=== PATIENT | female | born 1945 | race Caucasian/White ===

== ENCOUNTER 2018-10-27 09:13 | Inpatient (IN) ==
[2018-10-27] MEDS ORDERED: ATIVAN IV ONE (09:36)
--- NOTE | 2018-10-27 09:42 | PROVIDER DOCUMENTATION ---
HPI-General Adult - General Stated Complaint: AMS Time Seen by Provider: 10/27/18 09:29 Source: family, EMS Allergies/Adverse Reactions: Patient Allergies Allergy/AdvReac Type Severity Reaction Status Date / Time No Known Allergies Allergy Verified 10/27/18 10:33 Home Medications: Home Medication List Medication Instructions Recorded Confirmed Last Taken Type Albuterol Sulfate [Proair Hfa] 2 puff INH Q4-6H PRN PRN 10/27/18 10/27/18 Unknown History Apixaban [Eliquis] 1 tab PO DAILY 10/27/18 10/27/18 Unknown History Aspirin [Aspir-Low] 1 tab PO DAILY 10/27/18 10/27/18 Unknown History Atorvastatin Calcium 1 tab PO QHS 10/27/18 10/27/18 Unknown History Famotidine 1 tab PO DAILY 10/27/18 10/27/18 Unknown History Hydrochlorothiazide 1 tab PO DAILY 10/27/18 10/27/18 Unknown History Levothyroxine Sodium 1 tab PO DAILY 10/27/18 10/27/18 Unknown History Montelukast Sodium 1 tab PO DAILY 10/27/18 10/27/18 Unknown History Sotalol HCl [Sorine] 1 tab PO DAILY 10/27/18 10/27/18 Unknown History - History of Present Illness -Gen Adult Nature of Presenting Problems: Pt. is 73 yof that presents with AMS. Pt. daughter at bedside reports the patient was fine last night and today she is not talking and fidgiting everywhere. EMS reports she is O2 dependent at home and this morning was found with out her O2 on. Pt. has Hx of previous CVA with full recovery and no deficits. Pt. also has a Hx of HTN and COPD. Pt. has blood thinners in her medications but family isn't sure if she takes it or not. Location of Pain/Injury: reports: none. denies: head, face, mouth, neck, chest, upper extremity, hand(s), abdomen, back, pelvis, genitalia, lower extremity, feet, upper body, lower body, generalized, other Pain Radiation: reports: no radiation. denies: arm(s), back, buttocks, chest, epigastric, feet, groin, jaw, flank (L), legs (lower), LLQ, LUQ, neck, periumbilical, flank (R), RLQ, RUQ, shoulder(s), scapula, scrotal, sternal notch, suprapubic, legs (upper), urethral, vaginal, other Quality of Pain: reports: none. denies: aching, burning, pressure, stabbing, throbbing, tightness Severity: reports: moderate. denies: mild, severe Onset/Duration: reports: unsure Timing: reports: still present. denies: improving, gone now, constant, getting worse Context/Activities at Onset: reports: none. denies: light activity, moderate activity, vigorous activity, recent emotional stress, recent physical stress, recent trauma history, possible bad food, cold exposure, eating, out of country travel, rest, sleep, sexual activity, other Modifying Factors: improves with: nothing Associated Symptoms: reports: anxiety, other (AMS). denies: denies symptoms, arm pain, back/neck pain, chest pain, constipation, cough, diaphoresis, diarrhea, dizziness, EENT symptoms, fatigue, fever/chills, genitourinary problems, headaches, heartburn, joint pain, loss of appetite, malaise, muscle aches, sinus congestion/drainage, nausea, rash, seizure, shortness of breath, sensory/motor loss, pain with inspiration, swelling/mass in abdomen, syncope, vomiting, weakness, trouble walking Similar Symptoms Previously?: No Recently seen or treated by another doctor?: No Review of Systems - Adult - REVIEW OF SYSTEMS - ADULT Constitutional: reports: no symptoms reported Eyes: reports: no symptoms reported Ears, Nose, Mouth & Throat: reports: no symptoms reported Cardiovascular: reports: no symptoms reported Respiratory: reports: no symptoms reported Gastrointestinal: reports: no symptoms reported Genitourinary: reports: no symptoms reported Musculoskeletal: reports: no symptoms reported Integumentary: reports: no symptoms reported Neurological: reports: see HPI, other (AMS). denies: dizziness/vertigo, numbness, seizure Psychiatric: reports: no symptoms reported Past History - Adult - PAST MEDICAL HISTORY-ADULT Review of Records: reports: Old Records Reviewed, Nursing Assessment Review, Medications Reviewed, Social history reviewed & non-contributory. - IMMUNIZATION STATUS Childhood Immunizations: See Nurse Assessment Flu Vaccine: See Nurse Assessment - FAMILY HISTORY Family History: reviewed, not pertinent - SOCIAL HISTORY Smoking: quit greater than 1 year Physical Exam-General - PHYSICAL EXAM-ADULT Initial Vital Signs Reviewed: Yes - CONSTITUTIONAL General Appearance: moderate distress, anxious. negative: slow to respond, obtunded, combative - EYES Eyes: PERRL/EOMI, pink conjunctivae. negative: conjuctival exudate, scleral icterus, subconjunctival hemorrhage - HEAD, EARS, NOSE, MOUTH & THROAT HENMT: normocephalic/atraumatic, moist mucous membranes. negative: angioedema, frontal tenderness, maxillary tenderness - NECK Neck: non-tender, full range of motion, supple, normal inspection. negative: lymphadenopathy, trachial deviation, thyromegaly - RESPIRATORY Respiratory: lungs clear, normal breath sounds. negative: crackles, rales, rhonchi, stridor, wheezing - CARDIOVASCULAR Cardiovascular: normal peripheral pulses, regular rate, rhythm, no edema, no JVD . negative: extra beats, friction rub, irregularly irregular - GASTROINTESTINAL (ABDOMEN) Abdominal Exam: normal bowel sounds, non tender, soft. negative: distended, guarding, rigid, rebound, tenderness, hernia, mass - LYMPHATIC Lymphatic: no adenopathy. negative: axilla node tender, cervical node tenderness - MUSCULOSKELETAL Back Exam: normal inspection, no CVA tenderness, no vertebral tenderness. negative: ecchymosis, swelling, vertebral tenderness Extremity: normal range of motion, non-tender, normal inspection. negative: deformity, erythema, inflammation, swelling, tenderness Peripheral Pulses: radial (R): 2+, radial (L): 2+ - SKIN Integumentary: normal color, normal turgor, warm/dry. negative: cyanosis, erythema, jaundice, pallor, tenderness, warm - NEUROLOGIC Neurologic: grossly normal, no motor/sensory deficits. negative: aphasia, facial droop, focal weakness, motor weakness, sensory deficit - PSYCHIATRIC Psych/Mental Status: disoriented x 3, anxious. negative: normal mood/affect, normal thought content, normal thought process, oriented x 3 Progress - PLAN OF CARE/RESULTS Progress/Plan/Lab Results: Laboratory Results - last 24 hr 10/27/18 09:25 POC Glucose 106 H Orders Category Date Time Status Saline Loc NOW Care 10/27/18 09:35 Active CHEST-PORTABLE [RAD] Stat Exams 10/27/18 09:[address] HEAD W/O CONTRAST [CT] Stat Exams 10/27/18 09:36 Ordered ABG [RESP] Routine Lab 10/27/18 09:36 Ordered CBC WITH ELECTRONIC DIFF [HEME] Stat Lab 10/27/18 09:35 Uncollected CK PROFILE [SP CHEM] Stat Lab 10/27/18 09:35 Uncollected COMPREHENSIVE METABOLIC PANEL [CHEM] Stat Lab 10/27/18 09:35 Uncollected PRO B-NATRIURETIC PEPTIDE Stat Lab 10/27/18 09:35 Uncollected PROTIME WITH INR [COAG] Stat Lab 10/27/18 09:35 Uncollected PTT [COAG] Stat Lab 10/27/18 09:35 Uncollected TROPONIN T Stat Lab 10/27/18 09:35 Uncollected TSH Stat Lab 10/27/18 09:35 Uncollected URINALYSIS W/POSS RFLX CULT [URINALYSIS] Stat Lab 10/27/18 09:35 Uncollected Lorazepam [Ativan] Med 10/27/18 09:36 Once 0.5 mg IV NOW ONE EKG [EKG] Stat Ther 10/27/18 09:35 Ordered Laboratory Tests 10/27/18 10/27/18 10/27/18 09:25 09:45 09:50 WBC RBC Hgb Hct MCV MCH MCHC RDW Std Deviation Plt Count MPV Immature Gran % (Auto) Neut % (Auto) Lymph % (Auto) [place] % (Auto) Eos % (Auto) Baso % (Auto) Immature Gran # (Auto) Neut # (Auto) Lymph # (Auto) [place] # (Auto) Eos # (Auto) Baso # (Auto) PT INR PTT (Actin FS) Specimen Type ARTERIAL Sample Site R BRACHIAL pH 7.44 pCO2 52 H* pO2 93 HCO3 32.1 H Base Excess 9.3 H Oxyhemoglobin 96.2 ABG O2 Sat (Calculated) 19.0 ABG O2 Saturation 98.7 ABG Carboxyhemoglobin 1.40 ABG Methemoglobin 1.1 Maverick Test NO A-a O2 Difference 42.0 Total Hemoglobin 14.0 Lactate 1.00 Liter Flow 2.0 Blood Gas Modality CANNULA FiO2 % 28.0 Sodium Potassium Chloride Carbon Dioxide Anion Gap BUN Creatinine Estimated GFR/1.73 m2 BUN/Creatinine Ratio Glucose POC Glucose 106 H Calculated Osmolality Calcium Total Bilirubin AST ALT Alkaline Phosphatase Creatine Kinase Troponin T [id number] Pept Total Protein Albumin Globulin Albumin/Globulin Ratio Plasma Lactate 1.4 Urine Source Urine Color Urine Turbidity Urine pH Ur Specific Sabael Urine Protein Ur Glucose (Stick) Ur Ketones (Stick) Urine Blood Urine Nitrite Urine Bilirubin Urobilinogen Dipstick Urine Leukocytes Urine WBC (Auto) Urine RBC (Auto) U Epithel Cells (Auto) Urine Bacteria (Auto) 10/27/18 10/27/18 10/27/18 10:00 10:00 10:00 WBC 7.96 RBC 4.36 Hgb 13.4 Hct 40.4 MCV 92.7 MCH 30.7 MCHC 33.2 RDW Std Deviation 12.1 Plt Count 335 MPV 10.3 Immature Gran % (Auto) 0.0 Neut % (Auto) 57.3 Lymph % (Auto) 27.5 [place] % (Auto) 13.7 H Eos % (Auto) 1.1 Baso % (Auto) 0.4 Immature Gran # (Auto) 0.00 Neut # (Auto) 4.56 Lymph # (Auto) 2.19 [place] # (Auto) 1.09 H Eos # (Auto) 0.09 Baso # (Auto) 0.03 PT INR PTT (Actin FS) Specimen Type Sample Site pH pCO2 pO2 HCO3 Base Excess Oxyhemoglobin ABG O2 Sat (Calculated) ABG O2 Saturation ABG Carboxyhemoglobin ABG Methemoglobin Maverick Test A-a O2 Difference Total Hemoglobin Lactate Liter Flow Blood Gas Modality FiO2 % Sodium 139 Potassium 3.6 Chloride 93 L Carbon Dioxide 33 Anion Gap 13 BUN 10 Creatinine 0.7 Estimated GFR/1.73 m2 > 60 BUN/Creatinine Ratio 14 Glucose 101 POC Glucose Calculated Osmolality 277 Calcium 9.1 Total Bilirubin 0.65 AST 17 ALT 11 Alkaline Phosphatase 69 Creatine Kinase 85 Troponin T [id number] Pept 1706 H Total Protein 6.8 Albumin 3.8 Globulin 3.0 Albumin/Globulin Ratio 1.3 Plasma Lactate Urine Source Urine Color Urine Turbidity Urine pH Ur Specific Sabael Urine Protein Ur Glucose (Stick) Ur Ketones (Stick) Urine Blood Urine Nitrite Urine Bilirubin Urobilinogen Dipstick Urine Leukocytes Urine WBC (Auto) Urine RBC (Auto) U Epithel Cells (Auto) Urine Bacteria (Auto) 10/27/18 10/27/18 10/27/18 10:00 10:00 10:55 WBC RBC Hgb Hct MCV MCH MCHC RDW Std Deviation Plt Count MPV Immature Gran % (Auto) Neut % (Auto) Lymph % (Auto) [place] % (Auto) Eos % (Auto) Baso % (Auto) Immature Gran # (Auto) Neut # (Auto) Lymph # (Auto) [place] # (Auto) Eos # (Auto) Baso # (Auto) PT 18.2 H INR 1.39 PTT (Actin FS) 29.3 Specimen Type Sample Site pH pCO2 pO2 HCO3 Base Excess Oxyhemoglobin ABG O2 Sat (Calculated) ABG O2 Saturation ABG Carboxyhemoglobin ABG Methemoglobin Maverick Test A-a O2 Difference Total Hemoglobin Lactate Liter Flow Blood Gas Modality FiO2 % Sodium Potassium Chloride Carbon Dioxide Anion Gap BUN Creatinine Estimated GFR/1.73 m2 BUN/Creatinine Ratio Glucose POC Glucose Calculated Osmolality Calcium Total Bilirubin AST ALT Alkaline Phosphatase Creatine Kinase Troponin T < 0.010 [id number] Pept Total Protein Albumin Globulin Albumin/Globulin Ratio Plasma Lactate Urine Source CATH Urine Color YELLOW Urine Turbidity CLEAR Urine pH 5.5 Ur Specific Sabael 1.021 Urine Protein TRACE A Ur Glucose (Stick) NEGATIVE Ur Ketones (Stick) TRACE A Urine Blood TRACE A Urine Nitrite NEGATIVE Urine Bilirubin NEGATIVE Urobilinogen Dipstick 2 A Urine Leukocytes NEGATIVE Urine WBC (Auto) <10 Urine RBC (Auto) <10 U Epithel Cells (Auto) <10 Urine Bacteria (Auto) 1+ Family is insistent on begin transferred to . Dr. Pringle spoke to and they do not have any beds. He then spoke to the family and they are now willing to stay here at [facility]. Discussed results and plan of care with patient family. The agree with plan and verbalizes understanding. Result Diagrams: 10/27/18 10:00 10/27/18 10:00 - EKG 1 Time of EKG reading by physician:: 09:28 EKG Read and Signed by:: Lonnie Pringle EKG Interpretation (*Must complete 3 of following elements*): Abnormal Rate: 75 Rhythm: SR with PVC - XRAY 1 XRAY Study: Chest ([facility] [address] , [address], [place] [address] Department of Imaging Patient: NAHID AMEZCUA Date: 10/27/18MR#: [id number] : 5ADM Status: REG ERAcct#: [id number] Age/Sex: 73/FRoom/Bed: Loc: ED Ordering Physician: Claribel Temple Family Physician: None,PCP Reason for Procedure: AMS Signed EXAM: CHEST-PORTABLE HISTORY: AMS TECHNIQUE: Chest single view COMPARISON: 06/29/2010 FINDINGS: The lungs are well expanded. The heart is not enlarged. The vessels are not distended. There are increased interstitial markings in the apices believed to be fibrosis. No effusion identified. IMPRESSION: No acute abnormality.. Electronically signed by Chetan Larose 10/27/2018 10:38 AM 10/27/18 1038 Interpreting Physician: Chetan Larose MD Dictated Date/Time: 10/27/18 1038 cc: Clariebl Temple; None,PCP) XRAY Interpretation: See note - CT/MRI 1 CT Study: Head ([facility] [address], [address], [place] [address] Department of Imaging Patient: NAHID AMEZCUA Date: 10/27/18#: [id number] : 5ADM Status: REG ERAt#: [id number] Age/Sex: 73/FRoom/Bed: Loc: ED Ordering Physician: Claribel Temple Family Physician: None,PCP Reason for Procedure: ams Signed EXAM: CT HEAD W/O CONTRAST HISTORY: ams TECHNIQUE: CT head without contrast COMPARISON: 06/19/2018 FINDINGS: No parenchymal hemorrhage. No epidural or subdural hematoma. No subarachnoid hemorrhage. Minimal microvascular ischemic changes. No mass identified on this noncontrasted exam. No hydrocephalus. There is fluid in the right mastoid sinus similar to the prior study. IMPRESSION: No hemorrhage. Minimal microvascular ischemic changes.. This exam was performed using automated exposure control, adjustment of mA or kV according to patient size, and/or use of iterative reconstruction technique. Electronically signed by Chetan Larose 10/27/2018 10:37 AM 10/27/18 1037 Interpreting Physician: Chetan Larose MD Dictated Date/Time: 10/27/18 1035 cc: Claribel Temple; None,PCP) CT Results: See note - CONSULTS/PCP/HOSPITALIST Notification #1 *Consult/PCP/Hospitalist*: Bess Marr Time Discussed: 11:49 Reason/Comments: Admission Consult Disposition: Will see in ED, Admit Departure - Departure Date of Disposition Decision: 10/27/18 Time of Disposition Decision: 11:49 DIAGNOSIS: Altered mental status, unspecified Qualifiers: Altered mental status type: unspecified Qualified Code(s): R41.82 - Altered mental status, unspecified Disposition: ADMITTED INPATIENT 09 Certified Medical Emergency: Emergent Condition: Stable Referrals and Follow-Ups: None,PCP [Primary Care Provider] - - Critical Care Note This patient required my direct & personal management of CC.: No Attestation - Physician/ ONIEL Attestation Patient care was provided by Advanced Practice Provider:: Yes Advanced Practice Provider:: Claribel Temple Advanced Practice Provider documentation review:: The Mid-level provider documentation, treatment plan and medical decision making was reviewed by the physician who agrees with all treatment and medical decision making by the P. The physician spent face to face time with patient:: Yes Advanced Practice Provider documentation review:: Supervising physician onsite and consulted in the evaluation and care of this patient. The physician did have a face to face encounter with the patient.
[2018-10-27 09:53] LABS: ALLEN TEST NO; BE 9.3 mmoll (-3.0-3.0); BLOOD TYPE ARTERIAL; HCO3-(ACT) 32.1 mmoll (20.0-26.0); METHB 1.1 % (0.0-1.5); O2HB 96.2 % (95.0-99.0); PO2(98.6) 93 mmHg (60-100); SAMPLE BLOOD; SAO2 98.7 % (95.0-100.0); pH(98.6) 7.44 (7.35-7.45)
[2018-10-27 09:55] LABS: MODALITY CANNULA; PCO2(98.6) 52 mmHg (35-45)
[2018-10-27 10:21] LABS: BASO# 0.03 X1000 (0.0-0.2); BASO% 0.4 % (0.0-0.8); EOS# 0.09 X1000 (0.0-0.7); EOS% 1.1 % (0.0-10.0); HEMATOCRIT 40.4 % (37.0-47.0); HEMOGLOBIN 13.4 g/dL (12.0-16.0); LYMPH# 2.19 X1000 (1.2-3.4); LYMPH% 27.5 % (20.5-51.1); MCH 30.7 PG (27-31); MCHC 33.2 g/dL (33-37); MCV 92.7 FL (81-99); MONO# 1.09 X1000 (0.11-0.59); MONO% 13.7 % (1.7-9.3); MPV 10.3 FL (7.4-10.4); NEUT# 4.56 X1000 (1.4-6.5); NEUT% 57.3 % (42.2-75.2); PLT 335 X1000 (130-400); RBC 4.36 XMIL (4.2-5.4); RDW 12.1 % (11.5-14.5); WBC 7.96 X1000 (4.8-10.8)
[2018-10-27 10:31] LABS: INR 1.39; PROTIME 18.2 Seconds (11.0-16.0); PTT 29.3 Seconds (22.3-41.8)
[2018-10-27 10:38] LABS: AGAP 13; ALB/GLOB RATIO 1.3; ALBUMIN 3.8 g/dL (3.5-5.0); ALKALINE PHOSPHATASE 69 U/L (32-104); BUN 10 mg/dL (8-22); CALCIUM 9.1 mg/dL (8.8-10.2); CHLORIDE 93 mmol/L (98-107); CK PROFILE 85 U/L (24-173); COSMO 277; CREATININE 0.7 mg/dL (0.5-0.9); ESTIMATED GFR > 60; GLUCOSE 101 mg/dL (70-104); GOT 17 U/L (10-30); GPT 11 U/L (10-36); POTASSIUM 3.6 mmol/L (3.5-5.1); SODIUM 139 mmol/L (136-145); TCO2 33 mmol/L (25-35); TOTAL BILIRUBIN 0.65 mg/dL (0.20-1.00); TOTAL PROTEIN 6.8 g/dL (6.3-8.3)
--- NOTE | 2018-10-27 10:39 | Diag Imaging Result Doc PS360 ---
EXAM: CT HEAD W/O CONTRAST HISTORY: ams TECHNIQUE: CT head without contrast COMPARISON: 06/19/2018 FINDINGS: No parenchymal hemorrhage. No epidural or subdural hematoma. No subarachnoid hemorrhage. Minimal microvascular ischemic changes. No mass identified on this noncontrasted exam. No hydrocephalus. There is fluid in the right mastoid sinus similar to the prior study. IMPRESSION: No hemorrhage. Minimal microvascular ischemic changes.. This exam was performed using automated exposure control, adjustment of mA or kV according to patient size, and/or use of iterative reconstruction technique. Electronically signed by Chetan Larose 10/27/2018 10:37 AM
--- NOTE | 2018-10-27 10:41 | Diag Imaging Result Doc PS360 ---
EXAM: CHEST-PORTABLE HISTORY: AMS TECHNIQUE: Chest single view COMPARISON: 06/29/2010 FINDINGS: The lungs are well expanded. The heart is not enlarged. The vessels are not distended. There are increased interstitial markings in the apices believed to be fibrosis. No effusion identified. IMPRESSION: No acute abnormality.. Electronically signed by Chetan Larose 10/27/2018 10:38 AM
--- NOTE | 2018-10-27 10:42 | EKG Report ---
Test Performed on : 10/27/2018 09:28:07 AM Test Reason : SOB Blood Pressure : / mmHG Vent. Rate : 075 BPM Atrial Rate : 075 BPM P-R Int : 134 ms QRS Dur : 080 ms QT Int : 368 ms P-R-T Axes : 073 042 063 degrees QTc Int : 410 ms Sinus rhythm. with premature supraventricular complexes. and with occasional premature ventricular co mplexes. Otherwise normal ECG When compared with ECG of 19-JUN-2018 05:15, premature ventricular complexes. are now present Unconfirmed Result
[2018-10-27 11:02] LABS: URINE SOURCE CATH
[2018-10-27 11:19] LABS: BILIRUBIN URINE NEGATIVE (NEGATIVE); BLOOD URINE TRACE (NEGATIVE); COLOR YELLOW; GLUCOSE URINE NEGATIVE (NEGATIVE); KETONE URINE TRACE mg/dL (NEGATIVE); LEUKOCYTES URINE NEGATIVE (NEGATIVE); NITRITE URINE NEGATIVE (NEGATIVE); PH URINE 5.5; PROTEIN URINE TRACE mg/dL (NEGATIVE); SP GRAVITY URINE 1.021; TURBIDITY URINE CLEAR (CLEAR); UROBILINOGEN URINE 2 mg/dL (NORMAL)
[2018-10-27 11:21] LABS: UR EPITHELIAL CELLS <10 /HPF (<10); URINE BACTERIA 1+ /HPF; URINE RBC <10 /HPF (<10); URINE WBC <10 /HPF (<10)
[2018-10-27] MEDS ORDERED: TYLENOL PR ONE (11:48)
[2018-10-27] MEDS ORDERED: ROCEPHIN 1 GM in NS 50 ML IV ONE (11:48)
[2018-10-27] MEDS ORDERED: ASPIRIN PR ONE (11:57)
[2018-10-27] MEDS ORDERED: NS 50 ML ONE (12:52)
[2018-10-27] MEDS ORDERED: ROCEPHIN ONE (12:53)
--- NOTE | 2018-10-27 14:31 | HISTORY AND PHYSICAL ---
PRIMARY CARE PROVIDER: Dr. Raghavendra Schmid at [facility]. Carries a past medical history per family a previous CVA on 06/19/2018. She was seen in the emergency room at [facility] and transferred to [facility]. COPD on home O2, hypertension, hypothyroidism, possibly an arrhythmias, she is on sotalol and GERD. Per daughter and son at bedside the patient is living with a grandson. He states last night she was in her normal state of health. She went to bed and when he went to check on her in the morning she did not have her oxygen on, she had pulled down some curtains, her lamp was in her bed and she did not have her oxygen on. She was found to be altered and brought to the ED. They did a head CT that does not show anything acute. She has a mild urinary tract infection and was found to be afebrile rectally and chest x-ray did not show any acute abnormality. Her plasma lactate is negative. She did have some mild CO2 retention and continues to remain altered and does not speak. She does move around in the bed however she does not really follow any commands, if you put your finger in her hand she will grab it but she will not intentionally let go so we will admit her to the ICU treat her for a probable urinary tract infection, CO2 retention and rule out CVA. PAST MEDICAL HISTORY: 1. Hypertension. 2. Recent CVA on 06/19/2018, hypothyroidism, possibly some type of arrhythmia. She is on sotalol. 3. Hypothyroidism. 4. COPD on home O2. PAST SURGICAL HISTORY: Cataract surgery. FAMILY HISTORY: There is some debate whether it was the father or grandmother who had a history of CVA. SOCIAL HISTORY: She lives with an eldest grandson in [place]. She is an ex- smoker, she quit 16 years ago. She does have family at bedside however they do not know much about her history. ALLERGIES: No known allergies. HOME MEDICATIONS: 1. ProAir inhaler 2 puffs inhaled q.4-q.6 hours p.r.n. shortness of breath. 2. Eliquis 5 mg tablet p.o. daily. 3. Aspirin 81 mg p.o. daily. 4. Atorvastatin calcium 1 tab p.o. at bedtime 40 mg. 5. Pepcid 20 mg p.o. daily. 6. Hydrochlorothiazide 12.5 mg p.o. daily. 7. Levothyroxine 1 tab p.o. daily. 8. Singulair 10 mg p.o. daily. 9. Sotalol 80 mg p.o. daily. REVIEW OF SYSTEMS: Again hard to obtain secondary to patient's condition. She did not follow any commands, she would not answer any questions however she was awake, alert, did not appear to be any acute distress.HEENT: Atraumatic, normocephalic. PERRL. Neck: Supple, trachea midline. Cardiovascular: S1, S2 appreciated. No murmurs, gallops, or rubs. Respiratory: Lung sounds tight throughout all lung flores, did not appreciate any rales, rhonchi or wheezes. GI: Was soft. It appeared to be nontender, nondistended, positive bowel sounds 4 quads. Extremities: Negative for edema. No clubbing, no cyanosis. Pedal pulses were palpable. Skin: Warm, dry and intact. Neuro: Again unable to assess neuro status. Patient would not speak. She did not really follow commands, however she was awake and looking about and moving around in the bed. DIAGNOSTIC DATA: Head CT, no hemorrhage. Minimal microvascular ischemic changes. Chest x-ray, no acute abnormality. LABORATORY DATA: White count 7, hemoglobin and hematocrit 13 and 40, platelet count is 335,000. ABG pH 7.44, pCO2 52, bicarb 32, oxygen saturation was 98 on 2 L nasal cannula. Chemistry, sodium 139, potassium 3.6, BUN 10, creatinine 0.7, blood glucose is 106. Troponin less than 0.010, proBNP was 1706, we do not have anything to compare it to. TSH was 0.21. Urinalysis did show 1+ bacteria, negative nitrates. ASSESSMENT AND PLAN: 1. Metabolic encephalopathy. Unsure if this is related to urinary tract infection or her CO2 retention being found without her home oxygen on or possibly a new cerebrovascular accident. We will treat her per the stroke protocol. We will continue treatment for her urinary tract infection and continue her on supplemental O2 and initiate her on breathing treatments. 2. Rule out cerebrovascular accident, patient had a recent cerebrovascular accident on 06/09/2018, have conflicting reports in the emergency department report and per family report the patient has been taking her medication as prescribed. However the emergency department report with the grandson living with her it was unknown if she was taking her medications. We will consult Neurology, check a brain MRI, MRA, carotid Dopplers, echocardiogram, given her dose of p.r. aspirin and will move her to the ICU and continue with frequent neuro checks per the stroke protocol. 3. Probable urinary tract infection. Given her altered mental status we will continue to treat with IV antibiotics and await her urine culture. 4. Hypertension. Will allow for permissive hypertension for the next 24 hours 220/120, restart her home medications in the a.m. 5. Hypothyroidism. Will continue her Synthroid. 6. Known chronic obstructive pulmonary disease. Will continue her supplemental O2 and breathing treatments. 7. Further recommendation to follow physician evaluation, laboratory and diagnostic data. Dictated by JOHNNA Blum for Jonathan Taylor MD cc: Krista Stahl III, MD Patient seen and examined by me. She is presenting with altered mental state. Head CT negative for any acute changes. She does have some co2 retention which may or may not be contributory to her encephalopathy. Agree with plans to obtain further neuroimaging. Would in addition check EEG, ammonia level, thyroid function test. Dr. Taylor. [facility]
[2018-10-27] MEDS ORDERED: ZOFRAN IV PRN (14:56)
[2018-10-27] MEDS ORDERED: DUONEB (A & A) INH PRN (14:56)
[2018-10-27 15:34] LABS: URINE SOURCE CATH
[2018-10-27] MEDS: DUONEB (A & A) INH SCH ×2 (15:35→19:25)
[2018-10-27 15:37] LABS: BILIRUBIN URINE NEGATIVE (NEGATIVE); BLOOD URINE SMALL (NEGATIVE); COLOR YELLOW; GLUCOSE URINE NEGATIVE (NEGATIVE); KETONE URINE TRACE mg/dL (NEGATIVE); LEUKOCYTES URINE NEGATIVE (NEGATIVE); NITRITE URINE POSITIVE (NEGATIVE); PH URINE 5.5; PROTEIN URINE TRACE mg/dL (NEGATIVE); SP GRAVITY URINE 1.027; TURBIDITY URINE HAZY (CLEAR); UR EPITHELIAL CELLS <10 /HPF (<10); URINE BACTERIA 2+ /HPF; URINE RBC <10 /HPF (<10); URINE WBC <10 /HPF (<10); UROBILINOGEN URINE NORMAL (NORMAL)
[2018-10-27] MEDS: NS 1,000 ML IV SCH (16:00)
[2018-10-27] MEDS ORDERED: NS NEB INH SCH (23:15)
[2018-10-28 00:10] LABS: AGAP 13; BUN 12 mg/dL (8-22); CALCIUM 9.3 mg/dL (8.8-10.2); CHLORIDE 98 mmol/L (98-107); COSMO 289; CREATININE 0.7 mg/dL (0.5-0.9); ESTIMATED GFR > 60; GLUCOSE 100 mg/dL (70-104); MAGNESIUM 1.6 mg/dL (1.5-2.7); POTASSIUM 3.7 mmol/L (3.5-5.1); SODIUM 145 mmol/L (136-145); TCO2 34 mmol/L (25-35)
[2018-10-28 01:17] LABS: ALLEN TEST NO; BE 8.6 mmoll (-3.0-3.0); BLOOD TYPE ARTERIAL; HCO3-(ACT) 31.6 mmoll (20.0-26.0); METHB 1.3 % (0.0-1.5); MODALITY CANNULA; O2(CT) 18.4 mL/dL (15.0-23.0); O2HB 95.3 % (95.0-99.0); PCO2(98.6) 49 mmHg (35-45); PO2(98.6) 78 mmHg (60-100); SAMPLE BLOOD; THB 13.7 g/dL (11.5-17.4); pH(98.6) 7.45 (7.35-7.45)
[2018-10-28] MEDS: XOPENEX NEB INH SCH ×5 (01:30→22:31)
[2018-10-28] MEDS: ATROVENT NEB INH SCH ×5 (01:30→22:31)
[2018-10-28] MEDS ORDERED: BETAPACE PO SCH ×3 (01:36→09:00)
[2018-10-28] MEDS ORDERED: OFIRMEV 1000 MG/ISOTONIC SOLN 1,000 MG/100 ML BOTTLE IV ONE (02:25)
[2018-10-28] MEDS ORDERED: VERSED IV ONE (03:37)
[2018-10-28] MEDS ORDERED: VERSED ONE (03:47)
[2018-10-28] MEDS ORDERED: DIPRIVAN 1% 1,000 MG/100 ML BOTTLE ONE (03:51)
[2018-10-28] MEDS ORDERED: DIPRIVAN 1% 1,000 MG/100 ML BOTTLE IV SCH (04:00)
[2018-10-28] MEDS ORDERED: NS 500 ML IV ONE (04:02)
[2018-10-28 04:17] LABS: BASO# 0.05 X1000 (0.0-0.2); BASO% 0.5 % (0.0-0.8); EOS# 0.08 X1000 (0.0-0.7); EOS% 0.8 % (0.0-10.0); HEMATOCRIT 38.2 % (37.0-47.0); HEMOGLOBIN 12.6 g/dL (12.0-16.0); IMM GRAN# 0.06 X1000 (0.0-0.04); IMM GRAN% 0.6 % (0.0-0.5); LYMPH# 1.95 X1000 (1.2-3.4); LYMPH% 20.2 % (20.5-51.1); MCH 30.7 PG (27-31); MCV 93.2 FL (81-99); MONO# 1.24 X1000 (0.11-0.59); MONO% 12.9 % (1.7-9.3); MPV 9.8 FL (7.4-10.4); NEUT# 6.26 X1000 (1.4-6.5); PLT 304 X1000 (130-400); RDW 12.2 % (11.5-14.5); WBC 9.64 X1000 (4.8-10.8)
[2018-10-28 04:28] LABS: INR 1.29; PROTIME 17.1 Seconds (11.0-16.0)
[2018-10-28 04:29] LABS: PTT 25.6 Seconds (22.3-41.8)
[2018-10-28] MEDS: PROTONIX IV SCH (04:43)
[2018-10-28] MEDS: SODIUM CHLORIDE 0.9% INJ SCH (04:43)
[2018-10-28 04:50] LABS: MAGNESIUM 1.6 mg/dL (1.5-2.7)
[2018-10-28 04:51] LABS: AGAP 18; ALBUMIN 3.2 g/dL (3.5-5.0); ALKALINE PHOSPHATASE 60 U/L (32-104); BUN 13 mg/dL (8-22); CHLORIDE 93 mmol/L (98-107); COSMO 272; CREATININE 0.8 mg/dL (0.5-0.9); ESTIMATED GFR > 60; GLUCOSE 128 mg/dL (70-104); GOT 18 U/L (10-30); GPT 12 U/L (10-36); POTASSIUM 3.2 mmol/L (3.5-5.1); SODIUM 135 mmol/L (136-145); TCO2 24 mmol/L (25-35); TOTAL BILIRUBIN 0.59 mg/dL (0.20-1.00); TOTAL PROTEIN 6.5 g/dL (6.3-8.3)
[2018-10-28 05:18] LABS: ALLEN TEST YES; BE 4.8 mmoll (-3.0-3.0); BLOOD TYPE ARTERIAL; HCO3-(ACT) 28.7 mmoll (20.0-26.0); METHB 1.4 % (0.0-1.5); O2(CT) 17.2 mL/dL (15.0-23.0); PCO2(98.6) 36 mmHg (35-45); PO2(98.6) 281 mmHg (60-100); SAMPLE BLOOD; SAO2 99.1 % (95.0-100.0); SRATE 15 BPM; THB 12.1 g/dL (11.5-17.4); TVOL 500 mL
[2018-10-28 05:19] LABS: MODALITY VENTILATOR
[2018-10-28 05:23] LABS: CK INDEX 0.8 (0.0-2.5); CK-MB 2.19 ng/mL (0.0-5.0)
--- NOTE | 2018-10-28 05:42 | PROGRESS NOTE ---
DATE: 10/28/2018 SUBJECTIVE: Ms. Liu is a 73-year-old female who was admitted earlier in the day on 10/27/2018 for encephalopathy. The etiology for encephalopathy is unknown at this time. They were ruling out possible urinary tract infection, hypercapnia as well as a possible stroke. The patient does have a history of a stroke on 06/09/2018. She also does have a questionable history of cardiac arrhythmia as well. She does take sotalol at home, and is on anticoagulation with Eliquis. I was called earlier in the evening because the patient was having episodes where she would have tachycardia as well as was having a few reported episodes of bradycardia. On monitor at times, she did appear to be in a sinus rhythm with premature supraventricular complexes as well as she was having occasional PVCs. This ranged anywhere from the 70 to 90s though she would have episodes where her heart rate would go up to as high as in the 180s, would briefly stay there, and come right back down to a normal rate. She did have a couple of episodes where her heart rate got down to as low as the 40s though would come immediately back up also. During this time, the patient was tolerating this well. She has not been hypotensive. At one time, she was slightly tachypneic and given her history of COPD we did go ahead and repeat arterial blood gases and chemistry to rule out any electrolyte abnormalities. Her CO2 was slightly elevated at 49 though pH was 7.45, PO2 was 78, HCO3 was 31.6. She had O2 saturation of 98%, this was on nasal cannula at [address] Koroma was notified of the patient's heart rate abnormalities. He did order for the patient to have a NG tube placed, and be given her sotalol per the NG tube. The NG tube placement was unsuccessful. Actually, after attempting the NG tube, the patient did seem to have stabilized more. She was resting in the bed. She was in no respiratory distress, her heart rate had come back down, and was maintaining in the 80s to 90s. Respirations were 20 to 23. Blood pressure was 109/65 with a MAP of 73, and she was 99% on nasal cannula. Though shortly after this, the patient's nurse stated that she did notice her having shaking type motions. She went in to notice her having a seizure-like activity. Unfortunately, with this, the patient did have respiratory compromise. Even after the seizure had stopped, she was having agonal respirations. They did begin providing respirations per bag-valve mask. Myself, as well as Dr. Koroma and Dr. Mcgwoan the ER physician did respond. The patient was successfully intubated by Dr. Mcgowan the ER physician. He did give RSI medications as well. Dr. Mcgowan did confirm tube placement. She did have to be given Versed as well as propofol for sedation after intubation. Her blood pressure did briefly drop to 70s to 80s systolic though we did give a 500 mL normal saline bolus, and it has improved at this time. We will closely monitor this for the need for implementation of pressors. We have gone ahead and repeated her morning labs to be drawn stat, which included a CBC, CMP, magnesium, cardiac enzymes as well as a repeat ABG after intubation. We have gone ahead and placed consults with Dr. Hadley with Pulmonology and Dr. Verdin with cardiology. The patient is already awaiting a consult with Dr. Stahl of Neurology. She is awaiting MRI and MRA of the brain in the morning. The patient's family was updated. We did speak with them prior to the patient being intubated, and they did confirm that she was a full code and does remain a full code at this time. Further orders and recommendations pending hospital course, diagnostic studies, and physician evaluation. Dictated by JOHNNA Mchugh for German Koroma MD cc: German Koroma MD
--- NOTE | 2018-10-28 06:03 | Diag Imaging Result Doc PS360 ---
EXAM: CHEST/ABD TUBE PLACEMENT HISTORY: Diminished Lung Sounds NG tube placement TECHNIQUE: Portable chest and upper abdomen COMPARISON: 10/27/2018 FINDINGS: There is no nasogastric tube. No endotracheal tube. The patient is rotated to the right. The lungs remain well expanded. No cardiomegaly. Pleural effusions identified. No definite infiltrates. IMPRESSION: No nasogastric tube identified. Electronically signed by Chetan Larose 10/28/2018 6:01 AM
--- NOTE | 2018-10-28 06:06 | Diag Imaging Result Doc PS360 ---
EXAM: CHEST-PORTABLE HISTORY: ET Tube Placement TECHNIQUE: Portable chest COMPARISON: 1:59 AM FINDINGS: Interval placement of an endotracheal tube. This is in good position with tip located 3 cm above the stanton. The lungs remain well expanded. No cardiomegaly. No pleural effusions. IMPRESSION: Endotracheal tube in good position. Electronically signed by Chetan Larose 10/28/2018 6:04 AM
[2018-10-28] MEDS: POTASSIUM CHLORIDE 20 MEQ/SWI 20 MEQ/100 ML IVPB IV SCH ×2 (06:15→08:29)
[2018-10-28] MEDS: SYNTHROID PO SCH (06:26)
--- NOTE | 2018-10-28 07:31 | EKG Report ---
Test Performed on : 10/28/2018 07:09:01 AM Test Reason : Arrhythmia,Poss. Tachy-Faizan Syndrome Blood Pressure : / mmHG Vent. Rate : 072 BPM Atrial Rate : 072 BPM P-R Int : 158 ms QRS Dur : 090 ms QT Int : 380 ms P-R-T Axes : 041 -03 048 degrees QTc Int : 416 ms Normal sinus rhythm. Cannot rule out Anterior infarct , age undetermined Abnormal ECG When compared with ECG of 27-OCT-2018 22:31, (Unconfirmed) Sinus rhythm. has replaced Atrial fibrillation. Vent. rate has decreased BY [address] no longer depressed in Inferior leads ST no longer depressed in Anterolateral leads Confirmed by Peter ASHLEY, Juan M Johnson ([id number]) on 10/28/2018 8:21:40 AM
[2018-10-28] MEDS: ASPIRIN EC PO SCH (08:26)
[2018-10-28] MEDS: HYDROCHLOROTHIAZIDE PO SCH (08:27)
[2018-10-28] MEDS ORDERED: PEPCID PO SCH (09:00)
[2018-10-28] MEDS ORDERED: ELIQUIS PO SCH ×2 (09:00→21:00)
[2018-10-28] MEDS ORDERED: MAGNESIUM SULFATE 2 GM/S.W.I. 2 GM/50 ML IVPB IV ONE (09:23)
--- NOTE | 2018-10-28 09:51 | Diag Imaging Result Doc PS360 ---
EXAM: CT HEAD W/O CONTRAST INDICATION: AMS TECHNIQUE: This exam was performed using automated exposure control, adjustment of mA or kV according to patient size, and/or use of iterative reconstruction technique. COMPARISON: 10/27/2018 FINDINGS: There is no definite acute infarct given the limited sensitivity of CT versus MRI. There is no discrete intracranial mass, mass effect, or intracranial hemorrhage. Right mastoid air cell effusion is stable. Surrounding soft tissues and bony structures are unremarkable, otherwise. IMPRESSION: Stable CT head with no definite acute intracranial pathology. Electronically signed by Hero Arroyo 10/28/2018 9:49 AM
--- NOTE | 2018-10-28 09:52 | CARDIOLOGY CONSULTATION ---
DATE: 10/28/2018 CHIEF COMPLAINT ON PRESENTATION: Apparently, stroke-like symptoms. HISTORY OF PRESENT ILLNESS: Ms. Liu is a 73-year-old female with a history of paroxysmal atrial fibrillation, maintained on sotalol and eliquis. She presented yesterday and was found to be altered. She was brought to the emergency room for further evaluation. Head CT did not show any acute findings, but she apparently had a recent CVA occurring in 05/2018. Overnight, she was intubated. Around 3:30 this morning, she apparently began having some seizure activity, agonal breathing. It was elected to intubate her. She is currently on sedation and not providing any history or following commands. PAST MEDICAL HISTORY: Significant for: 1. Paroxysmal atrial fibrillation, followed [facility] [place]. Last visit in 06/2018. She is maintained on b.i.d. sotalol at 80 mg, and Eliquis 5 mg b.i.d. 2. History of nonsustained ventricular tachycardia with a structurally normal heart and no coronary disease. 3. History of CVA. 4. Hypertension. SOCIAL HISTORY: Unable to be obtained secondary to the patient's intubated status. FAMILY HISTORY: Unable to be obtained secondary to the patient's current intubated status. REVIEW OF SYSTEMS: Unable to be obtained secondary to the patient's current intubated status. PHYSICAL EXAMINATION: Vital Signs: She was febrile to 101.2, heart rate currently is in the 70s (she did have some heart rates as high as the 150s that appeared to be when she was in atrial fibrillation), blood pressure 107/60. General: She is in no acute distress. She is intubated. HEENT: Oropharynx is moist. Poor dentition. Eye examination shows pink conjunctivae. White sclerae. Neck: No obvious thyromegaly or thyroid tenderness. Cardiovascular: She sounds to be in a regular rate and rhythm. Current telemetry shows sinus. She has no lower extremity edema. Abdomen: Soft, nontender, nondistended. She has no obvious organomegaly. Skin: Warm and dry throughout without any rashes. Neurologic and Psychiatric: Unable to be performed secondary to the patient's current intubated status. PERTINENT DATA: EKG reviewed by me at 9:30 shows what appears to be sinus rhythm with PVCs and PACs. Subsequent EKG on 10/27/2018 at 2156 shows sinus rhythm with PVCs. EKG on 10/27/2018 at 2231 shows what appears to be paroxysms of atrial fibrillation with rates up to 134 beats per minute. EKG at 2208 on 10/27/2018 shows sinus rhythm, PVCs, PACs. EKG on 10/28/2018 at 7:09 shows sinus rhythm. Her QTc on this final one is [address] did not show any acute findings or microvascular ischemic changes. No evidence of hemorrhage. She had a chest x- ray showing no acute abnormalities. Her lab data shows white count 9.6, hematocrit 38, platelet count is 304,000. Her INR is 1.29. Her sodium is 135, potassium 3.2, BUN 13, creatinine 0.8. She had a magnesium level of 1.6. Her albumin is 3.2. Her LDL was 90. She was initiated on atorvastatin 40. ASSESSMENT: Ms. Liu is a 73-year-old female with a history of cerebrovascular accident and paroxysmal atrial fibrillation. PLAN: I have changed her sotalol to b.i.d., as well as her Eliquis to 5 mg b.i.d. We will continue on these medications. Currently, she does not have an oral route, so these medications are being held. Her QTc is normal. We will follow up on her echocardiogram. If this is unremarkable, then I have no further recommendations. We will replete her potassium and magnesium. Please contact us if we can be of further assistance with this patient. ADDENDUM: Review of her echo shows a normal EF, no obvious clot, a small pericardial effusion. There is no evidence of tamponade physiology. Will ensure she has a TSH ordered. No further acute recs based on this study. cc: Leon Verdin MD MTDMikael
--- NOTE | 2018-10-28 09:54 | PULMONOLOGY CONSULTATION ---
DATE: 10/28/2018 REASON FOR CONSULTATION: Ventilator management. HISTORY OF PRESENT ILLNESS: Ms. Liu is a 73-year-old with COPD, chronic hypoxemic respiratory failure on nasal cannula, who had a stroke in May 2018 and was transferred to [facility]. By report, she had full recovery. She presented to the emergency room yesterday with altered mental status. She was aphasic and by report would intermittently follow commands. CT scan of the brain was negative. The patient was placed on a monitored bed. She had periods of bradycardia and tachycardia and had an episode where she had some shaking followed by apnea. As this point, she was intubated and initiated on mechanical ventilation. She currently moves all extremities to painful stimuli. She is on mild sedation. She is not following commands. PAST MEDICAL HISTORY: 1. COPD on home oxygen 2. CVA on 06/19/2018 3. History of cardiac dysrhythmia identified at [facility] on sotalol 4. History of cataract surgery FAMILY HISTORY: Positive for strokes. SOCIAL HISTORY: Prior history of tobacco use but none for the last several years. No alcohol use noted. REVIEW OF SYSTEMS: Cannot be performed. OBJECTIVE: Vital Signs: Blood pressure 107/60 with periods of hypotension through the evening. Pulse rate 75, respiratory rate 15, oxygen saturation 99%. HEENT: Pupils are equal. Oropharynx appears clear but dry. Neck: Supple. Chest: Reveals prolonged expiratory phase. Abdomen: Soft. Extremities: Reveal no edema. LABORATORIES: Arterial blood gas this morning reveals a pH 7.50, pCO2 of 36, PO2 of 281. White blood count 9.6, hemoglobin 12.6, platelet count 304,000. Sodium 135, potassium 3.2, chloride 93, bicarbonate 24, BUN 13, creatinine 0.8. IMPRESSION: 73-year-old with remote stroke without residual deficits, possible seizures, altered mental status, with acute on chronic respiratory failure. RECOMMENDATIONS: 1. Continue ventilatory support pending improvement in mental status. 2. Will bolus with IV fluids given her relative hypotension. 3. Recommend repeat CT scan now. There has been 24 hours since her last scan, to see if she is having any major stroke events. 4. Anticipate neurology evaluation this morning. 5. Wean oxygen. The patient does not need to be hyperoxic given possible brain injury. Time spent in critical care management: 1 hour cc: Ga Hadley MD [facility]
[2018-10-28] MEDS: NS 1,000 ML IV SCH ×4 (10:11→18:32)
--- NOTE | 2018-10-28 11:31 | ECHO REPORT ---
ORDER DATE: 10/27/2018 INDICATION: Possible CVA. FINDINGS: 1. The right atrium appears normal in size at 2.8 cm. 2. There is mild tricuspid regurgitation. The RV systolic pressure is 40. 3. Normal RV size and systolic function. 4. No significant pulmonic insufficiency. 5. Normal left atrial size at 3.3 cm. 6. No mitral valve prolapse. Mild mitral regurgitation. 7. Normal LV size, end-diastolic dimension of 4.4. Normal wall thicknesses with a posterior and interventricular septal wall thickness of 1 cm each. Normal LV systolic function. The calculated EF is 61%. 8. The aortic valve opens well. It is trileaflet. No evidence of stenosis or insufficiency. 9. The aorta appears normal in visualized segments. 10. There is a small circumferential pericardial effusion with no clear evidence of tamponade-type physiology on this study. cc: Leon Verdin MD
[2018-10-28 11:49] LABS: CK INDEX 0.9 (0.0-2.5); CK-MB 1.95 ng/mL (0.0-5.0)
[2018-10-28] MEDS: ROCEPHIN 1 GM in NS 50 ML IV SCH (12:26)
[2018-10-28] MEDS: DIPRIVAN 1% 1,000 MG/100 ML BOTTLE IV SCH ×2 (12:26→18:43)
--- NOTE | 2018-10-28 12:54 | EKG Report ---
Test Performed on : 10/27/2018 10:22:47 PM Test Reason : Tachycardia Blood Pressure : / mmHG Vent. Rate : 116 BPM Atrial Rate : 156 BPM P-R Int : 000 ms QRS Dur : 084 ms QT Int : 312 ms P-R-T Axes : 000 012 081 degrees QTc Int : 433 ms Atrial fibrillation. with rapid ventricular response. Low voltage QRS Nonspecific ST and T wave abnormality Abnormal ECG When compared with ECG of 27-OCT-2018 22:08, (Unconfirmed) Atrial fibrillation. has replaced Sinus rhythm. Confirmed by Peter ASHLEY, Juan M Johnson ([id number]) on 10/30/2018 9:01:12 AM
--- NOTE | 2018-10-28 14:01 | CONSULTATION ---
DATE OF CONSULTATION: 10/28/2018 Ms. Liu is 73 years old and neurology consult was requested for question of stroke. Ms. Liu is not able to provide first-hand history. History is taken from review of the hospital notes. By report, she was found a few days ago by family with her home O2 not attached, having pulled down some curtains and turned over a lamp. She appeared to be altered mentally. She was brought to the emergency room, evaluated and admitted. PCO2 was 52 on presentation. There was mention on current admission note that she may have had aphasia. There was no mention of focal motor deficit. She has been intubated, sedated, mechanically ventilated. At the time of my visit, propofol is on board. Chart shows history of stroke 06/19/2018, presenting with apparent aphasia and possibly left-sided weakness (I do not have any of this documented and this is taken from earlier hospital notes at this hospital). . There is reported past history of COPD requiring oxygen, hypothyroidism, stroke as above, hypertension. Workup here includes noncontrast CT reported to show nothing remarkable. Lab showed initial CK 85, later 277. Initial sodium 145, later 135. We have TSH of 0.21 this admission and no old thyroid lab for comparison. She has bacteriuria on admission. She has been afebrile through the day today. Temperature was recorded at 101.2 last afternoon. Heart rate was initially 120s and later 90s-100s and now 70s-80s. Systolic blood pressure has ranged as low as 60s and as high as 150s. On exam, Ms. Liu is supine, intubated, motionless. With minimal stimulation, there was some withdrawal of each limb. Limb tone is symmetric. Plantar response is silent bilaterally. There is conjugate lateral eye movement with passive head turning. There is slight pupil reaction to bright light bilaterally. Facial motility appears symmetric. Head is unremarkable. There is no meningismus. IMPRESSION: 1. Current appearance is global encephalopathy without definite focal features. This may have multiple factors including hypercapnia, medication effects, and currently heavy sedation. I do not see definite evidence of new cerebral infarction, other new focal central nervous system lesion, increased intracranial pressure. 2. Report of prior stroke with language disturbance. In general, this would not be consistent with reported left-sided weakness but she may be right hemisphere dominant. 3. I have some concern for baseline cognitive impairment but no documentation of that. If present, this would predispose her to more protracted encephalopathy with any toxic or metabolic disturbance. I do not have anything to add right now from a neurology standpoint. Depending on her clinical course, we might consider repeat imaging, EEG. If she becomes febrile with altered consciousness, we might consider LP. Thanks for asking neurology to see Ms. Liu. cc: Krista Stahl III, MD MTDD
[2018-10-28] MEDS ORDERED: POTASSIUM CHLORIDE 20 MEQ/SWI 20 MEQ/100 ML IVPB IV SCH (16:00)
--- NOTE | 2018-10-28 16:20 | PROGRESS NOTE ---
DATE: 10/28/2018 SUBJECTIVE: The patient is currently intubated as well as sedated. OBJECTIVE: Vital Signs: Temperature is 99.3 degrees, pulse is 73, respiratory rate 12, blood pressure 108/60. Oxygen saturation is 100%. HEENT: She is atraumatic, normocephalic. She does have an ET tube in place. Cardiovascular: S1, S2. Respiratory: Has evidence of good air entry bilaterally. Abdomen: Soft, nontender. No masses felt. Extremities: No evidence of edema. Central Nervous System: No obvious focal deficits noted. LABS: WBC is 9.65, hematocrit 38.2 with a platelet count of 304. ABG 7.5/36/281/99.1%. Sodium 135, potassium 3.2, chloride 93, bicarb 24. BUN is 13, creatinine 0.8. ASSESSMENT AND PLAN: 1. Acute respiratory failure. Maintain patient on ventilator support, and the patient is currently sedated with propofol. Pulmonary team is managing. 2. Encephalopathy. This may be related to CO2 narcosis which the patient may have had at the time of her presentation. Repeat CT scan does not show any acute lesions. EEG report is pending. Patient will also need to get an MRI of the brain when clinically stable. 3. Probable urinary tract infection. Continue antibiotics. Await urine culture report. 4. Hypothyroidism. Continue levothyroxine. 5. Chronic obstructive pulmonary disease. Maintain patient on nebulized bronchodilators. 6. Deep vein thrombosis prophylaxis. The patient is currently on Eliquis. 7. Atrial fibrillation. Continue Betapace as well as Eliquis. Cardiology is following. cc: Jonathan Taylor MD
[2018-10-28 17:15] LABS: CK INDEX 0.8 (0.0-2.5); CK-MB 1.51 ng/mL (0.0-5.0)
--- NOTE | 2018-10-28 18:16 | Diag Imaging Result Doc PS360 ---
EXAM: CHEST-PORTABLE - 10/28/2018 HISTORY: to confirm OGT placement TECHNIQUE: Portable exam for orogastric tube placement COMPARISON: None. FINDINGS: The tip of the orogastric tube is at the expected location of the mid stomach. IMPRESSION: Orogastric tube extending to mid stomach. Electronically signed by Fernando Mays 10/28/2018 6:13 PM
[2018-10-28] MEDS: BETAPACE PO SCH (20:00)
[2018-10-28] MEDS: LIPITOR PO SCH (20:00)
[2018-10-29] MEDS: XOPENEX NEB INH SCH ×4 (03:25→21:41)
[2018-10-29] MEDS: ATROVENT NEB INH SCH ×4 (03:25→21:41)
[2018-10-29] MEDS: DIPRIVAN 1% 1,000 MG/100 ML BOTTLE IV SCH (03:33)
[2018-10-29] MEDS: SODIUM CHLORIDE 0.9% INJ SCH (03:49)
[2018-10-29] MEDS: PROTONIX IV SCH (03:49)
[2018-10-29 05:35] LABS: ALLEN TEST YES; BE 3.7 mmoll (-3.0-3.0); BLOOD TYPE ARTERIAL; HCO3-(ACT) 27.8 mmoll (20.0-26.0); METHB 1.3 % (0.0-1.5); O2(CT) 17.7 mL/dL (15.0-23.0); PCO2(98.6) 43 mmHg (35-45); PO2(98.6) 137 mmHg (60-100); SAMPLE BLOOD; SAO2 99.5 % (95.0-100.0); SRATE 12 BPM; THB 12.8 g/dL (11.5-17.4); TVOL 500 mL; pH(98.6) 7.43 (7.35-7.45)
[2018-10-29 05:36] LABS: MODALITY VENTILATOR
[2018-10-29 06:19] LABS: BASO# 0.03 X1000 (0.0-0.2); BASO% 0.4 % (0.0-0.8); EOS# 0.32 X1000 (0.0-0.7); EOS% 3.8 % (0.0-10.0); HEMATOCRIT 33.3 % (37.0-47.0); LYMPH# 1.44 X1000 (1.2-3.4); LYMPH% 17.1 % (20.5-51.1); MCH 31.3 PG (27-31); MCV 94.6 FL (81-99); MONO# 1.03 X1000 (0.11-0.59); MONO% 12.2 % (1.7-9.3); MPV 10.4 FL (7.4-10.4); NEUT# 5.62 X1000 (1.4-6.5); NEUT% 66.5 % (42.2-75.2); PLT 232 X1000 (130-400); RBC 3.52 XMIL (4.2-5.4); RDW 12.4 % (11.5-14.5); WBC 8.44 X1000 (4.8-10.8)
[2018-10-29] MEDS: SYNTHROID PO SCH (06:30)
[2018-10-29 06:44] LABS: AGAP 11; ALB/GLOB RATIO 0.8; ALBUMIN 2.5 g/dL (3.5-5.0); ALKALINE PHOSPHATASE 54 U/L (32-104); BUN 11 mg/dL (8-22); CALCIUM 8.3 mg/dL (8.8-10.2); CHLORIDE 103 mmol/L (98-107); COSMO 280; CREATININE 0.5 mg/dL (0.5-0.9); ESTIMATED GFR > 60; GLUCOSE 113 mg/dL (70-104); GOT 15 U/L (10-30); GPT 9 U/L (10-36); POTASSIUM 2.9 mmol/L (3.5-5.1); SODIUM 140 mmol/L (136-145); TCO2 26 mmol/L (25-35); TOTAL BILIRUBIN 0.37 mg/dL (0.20-1.00); TOTAL PROTEIN 5.8 g/dL (6.3-8.3)
[2018-10-29 06:49] LABS: PHOSPHORUS 2.3 mg/dL (2.7-4.5); PREALBUMIN 9.9 mg/dL (20-40)
--- NOTE | 2018-10-29 07:46 | Diag Imaging Result Doc PS360 ---
EXAM: CHEST-PORTABLE HISTORY: respiratory failure TECHNIQUE: Portable chest single view COMPARISON: 10/28/2018 FINDINGS: The endotracheal tube and nasogastric tubes are in good position. The lungs are well expanded. No cardiomegaly. Tiny left pleural effusion. No consolidation. IMPRESSION: Stable chest. Electronically signed by Chetan Larose 10/29/2018 7:43 AM
[2018-10-29] MEDS: ASPIRIN EC PO SCH (08:19)
[2018-10-29] MEDS: HYDROCHLOROTHIAZIDE PO SCH (08:19)
[2018-10-29] MEDS: BETAPACE PO SCH ×2 (08:20→20:18)
[2018-10-29 10:14] LABS: ALLEN TEST YES; BE 4.5 mmoll (-3.0-3.0); BLOOD TYPE ARTERIAL; HCO3-(ACT) 28.4 mmoll (20.0-26.0); MODALITY VENTILATOR; O2(CT) 15.7 mL/dL (15.0-23.0); O2HB 96.5 % (95.0-99.0); PCO2(98.6) 43 mmHg (35-45); PO2(98.6) 95 mmHg (60-100); SAMPLE BLOOD; SAO2 98.8 % (95.0-100.0); THB 11.5 g/dL (11.5-17.4); pH(98.6) 7.44 (7.35-7.45)
--- NOTE | 2018-10-29 11:18 | PROGRESS NOTE ---
DATE: 10/29/2018 SUBJECTIVE: Mr. Liu is currently off of propofol. She remains intubated. OBJECTIVE: She is awake and alert right now, following commands, holding up 2 fingers correctly to command. She seemed bright and attentive. I do not have any new thoughts from Neurology standpoint. I suspect she has had transient global encephalopathy associated with her respiratory problems, chiefly elevated pCO2. I do not see evidence of new neurologic lesion. I do not think we need further workup from neurologic standpoint right now. I discussed findings briefly with family at the bedside. Thanks for asking Neurology to see Ms. Liu. cc: Krista Stahl III, MD MTDD
[2018-10-29] MEDS ORDERED: VANCOMYCIN IV PER PHARMACY MISC SCH (12:45)
[2018-10-29] MEDS ORDERED: KLOR-CON POWDER PACKET PO ONE (12:47)
[2018-10-29] MEDS ORDERED: KLOR-CON POWDER PACKET NG ONE (12:47)
[2018-10-29] MEDS: ROCEPHIN 1 GM in NS 50 ML IV SCH (12:51)
--- NOTE | 2018-10-29 13:52 | PROGRESS NOTE ---
DATE: 10/29/2018 SUBJECTIVE: The patient is currently awake. She has been extubated, and she is currently on a Ventimask. She can engage in a conversation. The patient's family present and they are pleased with her current medical treatment. OBJECTIVE: Vital Signs: Temperature 99.3 degrees, pulse 80, respirations 20, blood pressure 136/60, and oxygen saturation is 97%. HEENT: Atraumatic, normocephalic. Cardiovascular: S1, S2. Respiratory: There is evidence of good entry bilaterally. Abdomen: Soft, nontender. No masses felt. Extremities: No evidence of edema. Central nervous system: No obvious focal deficit noted. LABORATORY: WBC is 8.44, hematocrit is 33.3 with a platelet count of 232,000. ABG 7.44/53/95/98.8%. Sodium is 140, potassium 2.9, chloride is 103, bicarb 26, BUN is 11, and creatinine 0.5. ASSESSMENT AND PLAN: 1. Acute respiratory failure. The patient currently has been extubated. Maintain patient on oxygen supplementation. Pulmonary team following. 2. Encephalopathy. The patient's mental status has improved tremendously. We will continue to follow up on her neurologic state. Follow up on EEG report as well as MRI of the brain. 3. Urinary tract infection. Urine culture positive for gram positive cocci. Continue current antibiotic regimen. Follow up on urine culture reports. 4. Atrial fibrillation. Continue Betapace as well as Eliquis. Cardiology is following. 5. Hypothyroidism. Continue levothyroxine. 6. COPD. Maintain patient on nebulized bronchodilators. 7. Deep vein thrombosis prophylaxis. The patient is on Eliquis. cc: Jonathan Taylor MD
[2018-10-29] MEDS ORDERED: VANCOMYCIN 1,900 MG in NS 500 ML IV ONE (14:00)
[2018-10-29] MEDS: POTASSIUM CHLORIDE 20 MEQ/SWI 20 MEQ/100 ML IVPB IV SCH ×2 (14:34→16:40)
[2018-10-29] MEDS: NS 1,000 ML IV SCH (14:34)
--- NOTE | 2018-10-29 14:39 | Diag Imaging Result Doc PS360 ---
MRI BRAIN W/WO CONTRAST - 10/28/2018 INDICATION: stroke COMPARISON: Head CT 10/28/2018 FINDINGS: There is some mild patient motion artifact. There is no area of restricted diffusion. There are some minimal periventricular cerebral white matter hyperintensities. These are mainly on the right side. No intracranial mass or hemorrhage. There is no abnormal contrast enhancement. IMPRESSION: No acute disease. Minimal nonspecific cerebral white matter hyperintensities. Electronically signed by Wilder Nicholson 10/29/2018 2:37 PM
--- NOTE | 2018-10-29 14:40 | Diag Imaging Result Doc PS360 ---
MRA BRAIN W/O CONTRAST - 10/28/2018 INDICATION: stroke TECHNIQUE: Noncontrast [id number] technique was used COMPARISON: None FINDINGS: There is significant patient motion artifact. Nevertheless the exam is diagnostic. The internal carotid arteries are patent. The vertebral and basilar arteries are patent. All of the major cerebral and cerebellar arteries are patent. No aneurysm or stenosis. IMPRESSION: Negative exam. Electronically signed by Wilder Nicholson 10/29/2018 2:38 PM
--- NOTE | 2018-10-29 16:00 | PULMONOLOGY PROGRESS NOTE ---
DATE: 11/29/2018 SUBJECTIVE: The patient is arousable. Her propofol has been placed on standby. She will squeeze hands appropriately. OBJECTIVE: Vital Signs: The patient has been afebrile for the last 24 hours. Blood pressure 126/75, heart rate 68 respiratory rate 12, oxygen saturation 100%. HEENT pupils are equal and reactive. Oropharynx appears clear. Neck is supple. Chest reveals good air entry bilaterally without wheezing or rhonchi. Cardiac exam S1-S2. Abdomen is soft. Extremities without edema. LABORATORIES: White blood count 8.44, hemoglobin 11.0, platelet count 232,000. Arterial blood gas on 40% FiO2 reveals a pH 7.43, pCO2 of 43, PO2 of 137. Sodium 140, potassium 2.9, chloride 103,bicarbonate 26, BUN 11, creatinine 0.5. CT scan of the chest, unchanged. Repeat CT scan of the head yesterday morning reveals no definite acute intracranial pathology. IMPRESSION: 1. 73-year-old with chronic obstructive pulmonary disease. 2. Acute on chronic hypoxemic respiratory failure. 3. Altered mental status. She appears to have improved. She is now following commands. She will be placed on a spontaneous breathing trial and evaluated for extubation. TIME SPENT: Critical care management 30+ minutes. cc: Ga Hadley MD
[2018-10-29] MEDS: LIPITOR PO SCH (20:18)
[2018-10-30] MEDS: ATROVENT NEB INH SCH ×4 (03:35→21:15)
[2018-10-30] MEDS: XOPENEX NEB INH SCH ×4 (03:35→21:15)
[2018-10-30] MEDS: PROTONIX IV SCH (04:25)
[2018-10-30 04:44] LABS: ALLEN TEST YES; BE 6.2 mmoll (-3.0-3.0); BLOOD TYPE ARTERIAL; HCO3-(ACT) 29.8 mmoll (20.0-26.0); METHB 0.7 % (0.0-1.5); O2(CT) 14.6 mL/dL (15.0-23.0); O2HB 97.7 % (95.0-99.0); PCO2(98.6) 46 mmHg (35-45); PO2(98.6) 146 mmHg (60-100); SAMPLE BLOOD; SAO2 99.8 % (95.0-100.0); THB 10.4 g/dL (11.5-17.4); pH(98.6) 7.44 (7.35-7.45)
[2018-10-30 04:45] LABS: MODALITY CANNULA
[2018-10-30 05:45] LABS: AGAP 13; ALB/GLOB RATIO 0.8; ALBUMIN 2.8 g/dL (3.5-5.0); ALKALINE PHOSPHATASE 58 U/L (32-104); BUN 5 mg/dL (8-22); CALCIUM 8.7 mg/dL (8.8-10.2); CHLORIDE 103 mmol/L (98-107); COSMO 281; CREATININE 0.4 mg/dL (0.5-0.9); ESTIMATED GFR > 60; GLUCOSE 80 mg/dL (70-104); GOT 22 U/L (10-30); GPT 11 U/L (10-36); POTASSIUM 4.2 mmol/L (3.5-5.1); SODIUM 143 mmol/L (136-145); TCO2 27 mmol/L (25-35); TOTAL BILIRUBIN 0.54 mg/dL (0.20-1.00); TOTAL PROTEIN 6.2 g/dL (6.3-8.3)
[2018-10-30 06:12] LABS: HEMATOCRIT 34.4 % (37.0-47.0); HEMOGLOBIN 11.4 g/dL (12.0-16.0); MCH 31.1 PG (27-31); MCHC 33.1 g/dL (33-37); MPV 10.3 FL (7.4-10.4); RBC 3.66 XMIL (4.2-5.4); RDW 12.3 % (11.5-14.5); WBC 8.76 X1000 (4.8-10.8)
[2018-10-30] MEDS: SYNTHROID PO SCH (06:25)
--- NOTE | 2018-10-30 07:39 | Diag Imaging Result Doc PS360 ---
CHEST-PORTABLE - 10/30/2018 INDICATION: respiratory failure COMPARISON: 10/29/2018 FINDINGS: The patient has been extubated. Lung volumes remain stable. Stable cardiomegaly and pulmonary vascular congestion. Stable mild infiltrate or atelectasis at the lateral left lung base. IMPRESSION: Patient extubated. Otherwise no change from prior. Electronically signed by Wilder Nicholson 10/30/2018 7:36 AM
--- NOTE | 2018-10-30 07:47 | Carotid Study ---
DATE: 10/27/2018 PROCEDURE: Carotid duplex imaging. REFERRING PHYSICIAN: Dr. Taylor. INTERPRETING PHYSICIAN: Dr. Barraza. TECH: [place]. INDICATIONS: CVA. DIAGRAM OF ULTRASOUND IMAGING R L RIGHT INT EXT INT EXT LEFT Tono (cm/s) Tono (cm/s) Subclavian 72/0 Subclavian 114/11 CCA Proximal 174/0 CCA Proximal 144/12 CCA Distal 99/12 CCA Distal 100/12 Bulb 60/12 Bulb 104/16 ICA Proximal 61/13 ICA Proximal 73/16 ICA Mid 95/21 ICA Mid 95/21 ICA Distal 112/24 ICA Distal 84/16 ECA 135/17 ECA 76/0 Vertebral 61/11 and antegrade Vertebral 77/19 and antegrade ICA/CCA Ratio 1.07 ICA/CCA Ratio 0.65 % Stenosis 40-59% % Stenosis 40-59% FINDINGS: There are atherosclerotic changes noted in the bilateral carotid bulbs. On the right although this does not appear to be terribly stenotic, the velocities in the distal internal carotid arteries are slightly elevated which would correlate to a moderate 40-59% stenosis here. On the left, there is no hemodynamically significant lesions. SUMMARY: Moderate stenosis on the right, mild stenosis on the left. cc: Sofia Barraza MD
[2018-10-30] MEDS: ASPIRIN EC PO SCH (08:19)
[2018-10-30] MEDS: HYDROCHLOROTHIAZIDE PO SCH (08:19)
[2018-10-30] MEDS: BETAPACE PO SCH ×2 (08:19→20:37)
[2018-10-30] MEDS: NS 1,000 ML IV SCH (09:11)
--- NOTE | 2018-10-30 10:58 | EKG Report ---
Test Performed on : 10/30/2018 07:05:31 AM Test Reason : AFIB Blood Pressure : / mmHG Vent. Rate : 122 BPM Atrial Rate : 107 BPM P-R Int : 000 ms QRS Dur : 086 ms QT Int : 334 ms P-R-T Axes : 000 009 025 degrees QTc Int : 475 ms Atrial fibrillation. with rapid ventricular response. Abnormal ECG When compared with ECG of 28-OCT-2018 07:09, Atrial fibrillation. has replaced Sinus rhythm. Vent. rate has increased BY 50 BPM Nonspecific T wave abnormality now evident in Inferior leads Confirmed by Peter ASHLEY, Juan M Johnson ([id number]) on 11/02/2018 12:48:12 PM
[2018-10-30] MEDS: ROCEPHIN 1 GM in NS 50 ML IV SCH (11:10)
--- NOTE | 2018-10-30 12:19 | PROGRESS NOTE ---
DATE: 10/30/2018 SUBJECTIVE: The patient is resting comfortably in bed. Not in any obvious distress. OBJECTIVE: Vital signs: Temperature 98.6 degrees, pulse 72, respirations 20, blood pressure 158/70, oxygen saturation 99%. HEENT: Atraumatic, normocephalic. Cardiovascular: S1, S2. Respiratory system: Has evidence of good air entry bilaterally. Abdomen: Soft, nontender. No masses felt. Extremities: No evidence of edema. Central nervous system: No obvious focal deficits noted. LABORATORY DATA: WBC is 8.76, hematocrit 34.4, with a platelet count of 247,000. ABG 7.44/46/146/99.8%. Sodium is 143, potassium 4.2, chloride is 103, bicarb 27, BUN is 5, creatinine 0.4. X-ray of the chest shows stable cardiomegaly as well as pulmonary vascular condition. There is mild infiltrate in the left lung base. ASSESSMENT AND PLAN: 1. Acute respiratory failure. The patient has been doing relatively well post extubation. Maintain the patient on supplemental oxygen. Pulmonary team following. The patient can now be transferred to a step-down unit. 2. Encephalopathy, improved. 3. Urinary tract infection secondary to Enterococcus faecalis. Adjust antibiotics based on sensitivity report. 4. Atrial fibrillation. Continue Betapace as well as Eliquis. Cardiology following. 5. Hypothyroidism. Continue levothyroxine. 6. Chronic obstructive pulmonary disease. Continue nebulized bronchodilators. 7. Deep vein thrombosis prophylaxis. The patient is on Eliquis. 8. Disposition. The patient can be transferred to the step-down unit. cc: Jonathan Taylor MD
--- NOTE | 2018-10-30 12:36 | PROGRESS NOTE ---
DATE: 10/30/2018 SUBJECTIVE: Ms. Liu is propped up in bed feeding herself lunch. She reports no headache. OBJECTIVE: She is awake and alert, chewing and swallowing without difficulty. Voice is strong and speech is not significantly dysarthric. She answered simple questions. She is oriented. Nothing new from a neurology standpoint. She seems to have had transient encephalopathy associated with elevated pCO2 and that is resolved. I am not certain about her baseline level of cognitive function and she may be close to that baseline now. Thanks for asking Neurology to see Ms. Liu. cc: MD LORRAINE Amaya III
[2018-10-30] MEDS: DOXYCYCLINE PO SCH ×2 (13:00→20:36)
[2018-10-30] MEDS ORDERED: VANCOMYCIN 1,400 MG in NS 250 ML IV SCH (14:00)
[2018-10-30] MEDS ORDERED: BETAPACE PO ONE (16:25)
[2018-10-30] MEDS ORDERED: LOPRESSOR IV PRN (16:27)
[2018-10-30] MEDS: LIPITOR PO SCH (20:36)
[2018-10-31] MEDS: ATROVENT NEB INH SCH ×4 (03:35→21:15)
[2018-10-31] MEDS: XOPENEX NEB INH SCH ×4 (03:35→21:15)
[2018-10-31 05:12] LABS: ALLEN TEST YES; BE 1.5 mmoll (-3.0-3.0); BLOOD TYPE ARTERIAL; METHB 0.8 % (0.0-1.5); O2(CT) 24.3 mL/dL (15.0-23.0); O2HB 96.3 % (95.0-99.0); PCO2(98.6) 45 mmHg (35-45); PO2(98.6) 95 mmHg (60-100); SAMPLE BLOOD; SAO2 98.5 % (95.0-100.0); THB 17.9 g/dL (11.5-17.4); pH(98.6) 7.39 (7.35-7.45)
[2018-10-31 05:15] LABS: MODALITY CANNULA
[2018-10-31] MEDS: PROTONIX IV SCH (06:09)
[2018-10-31] MEDS: NS 1,000 ML IV SCH (06:09)
[2018-10-31] MEDS: SYNTHROID PO SCH (06:10)
[2018-10-31 07:46] LABS: HEMATOCRIT 38.7 % (37.0-47.0); HEMOGLOBIN 12.6 g/dL (12.0-16.0); MCH 31.3 PG (27-31); MCHC 32.6 g/dL (33-37); MPV 10.5 FL (7.4-10.4); RBC 4.03 XMIL (4.2-5.4); RDW 12.4 % (11.5-14.5); WBC 8.81 X1000 (4.8-10.8)
[2018-10-31 08:26] LABS: AGAP 15; ALB/GLOB RATIO 0.8; ALBUMIN 2.9 g/dL (3.5-5.0); ALKALINE PHOSPHATASE 63 U/L (32-104); BUN 12 mg/dL (8-22); CALCIUM 9.1 mg/dL (8.8-10.2); CHLORIDE 99 mmol/L (98-107); COSMO 280; CREATININE 0.6 mg/dL (0.5-0.9); ESTIMATED GFR > 60; GLUCOSE 72 mg/dL (70-104); GOT 17 U/L (10-30); GPT 11 U/L (10-36); POTASSIUM 3.6 mmol/L (3.5-5.1); SODIUM 141 mmol/L (136-145); TCO2 27 mmol/L (25-35); TOTAL BILIRUBIN 0.58 mg/dL (0.20-1.00); TOTAL PROTEIN 6.6 g/dL (6.3-8.3)
[2018-10-31] MEDS: DOXYCYCLINE PO SCH ×2 (09:57→19:59)
[2018-10-31] MEDS: ASPIRIN EC PO SCH (09:59)
[2018-10-31] MEDS: HYDROCHLOROTHIAZIDE PO SCH (10:00)
[2018-10-31] MEDS: BETAPACE PO SCH ×2 (10:01→19:59)
--- NOTE | 2018-10-31 11:09 | Diag Imaging Result Doc PS360 ---
EXAM: CHEST-PORTABLE INDICATION: respiratory failure TECHNIQUE: One view COMPARISON: 10/30/2018 FINDINGS: Mild pulmonary venous congestion is stable. Mild atelectasis and/or infiltrate at the left lung base has not changed. No new consolidation is identified. Cardiac silhouette is stable. IMPRESSION: Stable chest. Electronically signed by Hero Arroyo 10/31/2018 11:07 AM
[2018-10-31] MEDS ORDERED: ELIQUIS PO SCH (15:00)
--- NOTE | 2018-10-31 16:37 | PROGRESS NOTE ---
DATE: 10/31/2018 SUBJECTIVE: The patient had recurrent atrial fibrillation with rapid ventricular rate yesterday afternoon. Sotalol dose was increased. Intravenous metoprolol given on as-needed basis. She has since transferred out of intensive care unit to regular bed. She is not presently on telemetry. She denies any chest discomfort, dyspnea or palpitations. OBJECTIVE: Blood pressure 121/60, heart rate 69, oxygen saturation 98% on nasal cannula oxygen. There is no significant jugular venous distention.Chest: Clear to auscultation bilaterally. Cardiac Exam: Reveals a regular rate and rhythm without appreciable murmur or gallop. There is no evidence of peripheral edema. LABORATORY DATA: Includes a white blood cell count 8.8, hematocrit 38.7, hemoglobin 12.6, platelet count 271,000. Sodium 141, potassium 3.6, chloride 99, carbon dioxide 27, BUN 12, creatinine 0.6, glucose 72. Albumin 2.9. IMPRESSION: 1. Paroxysmal atrial fibrillation. 2. Previous cerebrovascular accident in the past. 3. Recent encephalopathy possibly related to hypercapnia. 4. Hypertension. RECOMMENDATIONS: 1. Continue telemetry observation. 2. Resume anticoagulation with Eliquis given significant CHADS2-VASc score and associated thromboembolic risk related to paroxysmal atrial fibrillation. 3. Physical therapy consult. 4. Suspect patient may benefit from stay in residential facility for rehabilitation for several weeks. cc: Jostin Ang MD
--- NOTE | 2018-10-31 19:11 | PROGRESS NOTE ---
DATE: 10/31/2018 ADDENDUM: Was discharged this morning. However after the family came to pick her up, she did refer to them that she still feels weak and the family request that if we could explore the possibility of sending Ms. Liu to a rehab facility to get her a little stronger before she goes home. She has not been seen yet by physical therapy so would wait for Physical Therapy evaluation and will also get social work to evaluate patient for possible rehab placement. Please refer to the details of my discharge summary in the chart. We would withhold the discharge today until we have the physical therapy evaluation and social work arrangement. cc: Reggie Muñoz MD
[2018-10-31] MEDS: ELIQUIS PO SCH (19:59)
[2018-10-31] MEDS: LIPITOR PO SCH (20:00)
--- NOTE | 2018-10-31 22:54 | DISCHARGE SUMMARY ---
ADMISSION DATE: 10/27/2018 DISCHARGE DATE: DISPOSITION: Is home. FOLLOWUP: Will be patient PCP Dr. Raghavendra Schmid at [facility]. CONSULTATION: 1. Neurology was consulted. Patient was seen by Dr. Stahl. Pulmonary medicine was consulted. Patient was seen by Dr. Hadley. INVASIVE PROCEDURES: None. IMAGING STUDIES OF SIGNIFICANT: A chest x-ray was initially done which was unremarkable. A CT scan of the head showed no hemorrhage. Minimal microvascular changes. Carotid Doppler showed moderate stenosis on the right and mild stenosis on the left. An echocardiogram shows ejection fraction of 61% with no major valvular abnormality. MRA of the brain was negative. MRI showed no acute disease. Minimal nonspecific cerebral white matter hyperintensities. A repeat CT scan was unremarkable. Multiple subsequent chest x-rays were done. ADMISSION DIAGNOSIS: 1. Metabolic encephalopathy to rule out cerebrovascular accident. 2. Probable urinary tract infection. 3. Hypertension. 4. Hypothyroidism. DIAGNOSIS AT THE TIME OF DISCHARGE: 1. Altered mental status on presentation secondary to urinary tract infection . 2. Enterococcus faecalis urinary tract infection. 3. Acute on chronic hypoxemic respiratory failure patient was intubated, was successfully extubated, was seen by Pulmonary Medicine. 4. Transient hypercarbia resolved. 5. History of cerebrovascular accident with no residual deficits. 6. History of chronic obstructive pulmonary disease on home 2 oxygen. 7. Hypothyroidism. 8. Bilateral carotid nonobstructive stenosis. DISCHARGE MEDICATIONS: 1. Apixaban 5 mg daily. 2. Aspirin 1 mg daily. 3. Atorvastatin 40 mg at bedtime. 4. Hydrochlorothiazide 12.5 daily. 5. Levothyroxine 88 mcg daily. 6. Montelukast 10 mg daily. 7. Famotidine 20 mg daily. 8. Sotalol 80 mg p.o. daily. Culturelle 1 tab daily. 1. Doxycycline 100 mg b.i.d. 2. Amoxicillin 500 b.i.d. PRESENTING COMPLAINT: Altered mental status. HISTORY OF PRESENTING COMPLAINT: Ms. Liu is a 73-year-old female who is known to have COPD on home 2 oxygen also COPD and cardiac arrhythmias, previous CVA, was brought to the emergency department because of altered mental status. Initial imaging studies were unremarkable. Ms Liu was subsequently admitted for further medical care. HOSPITAL COURSE: During the night of after she got admitted she became more confused, more altered. I understand she had an episode of a seizure and apparently aspirated and got more compromise from respiratory standpoint so was intubated. Ms Liu remained intubated for just about 2 days was successfully extubated on October 29 and since then has been tolerating just nasal cannula. She was subsequently transferred from the ICU to regular medical floor where she continue having physical therapy and continue with her IV antibiotics. This morning she refers to be feeling a whole lot better. The daughter who was at the bedside with her also confirmed that they are extremely happy to see the turn around events and that making Ms. Liu a lot better. They all believe that Ms Liu is back to her baseline. She is currently asymptomatic, very stable so we are going to discharge her and she will follow up with her primary care doctor. Ms. Liu is also advised to follow up with Dr. Stahl if needed. All the discharge instructions have been discussed with her and with her daughter both of them voiced understanding. TIME SPENT: 37 minutes. cc: Krista Stahl III, MD
[2018-11-01] MEDS: NS 1,000 ML IV SCH ×3 (02:47→21:52)
[2018-11-01] MEDS: XOPENEX NEB INH SCH ×4 (03:25→21:20)
[2018-11-01] MEDS: ATROVENT NEB INH SCH ×4 (03:25→21:20)
--- NOTE | 2018-11-01 06:23 | EKG Report ---
Test Performed on : 11/01/2018 06:04:35 AM Test Reason : PAF Blood Pressure : / mmHG Vent. Rate : 058 BPM Atrial Rate : 058 BPM P-R Int : 152 ms QRS Dur : 090 ms QT Int : 470 ms P-R-T Axes : 037 007 018 degrees QTc Int : 461 ms Sinus bradycardia. Possible Anterior infarct , age undetermined Abnormal ECG When compared with ECG of 01-NOV-2018 06:03, (Unconfirmed) Previous ECG has undetermined rhythm, needs review Confirmed by Peter ASHLEY, Juan M Johnson ([id number]) on 11/02/2018 12:48:47 PM
[2018-11-01] MEDS: PROTONIX IV SCH (06:35)
[2018-11-01] MEDS: SYNTHROID PO SCH (06:35)
[2018-11-01 07:21] LABS: HEMATOCRIT 36.8 % (37.0-47.0); HEMOGLOBIN 12.1 g/dL (12.0-16.0); MCH 30.9 PG (27-31); MCHC 32.9 g/dL (33-37); MCV 93.9 FL (81-99); MPV 10.2 FL (7.4-10.4); RBC 3.92 XMIL (4.2-5.4); RDW 12.4 % (11.5-14.5); WBC 7.02 X1000 (4.8-10.8)
--- NOTE | 2018-11-01 08:18 | Diag Imaging Result Doc PS360 ---
EXAM: CHEST-PORTABLE INDICATION: respiratory failure TECHNIQUE: One view COMPARISON: 10/31/2018 FINDINGS: The patient is rotated toward the left. Given differences in positioning, the pulmonary venous congestion and mild atelectasis and/or infiltrate at the left lung base are approximately stable. There may be a small left effusion that is stable. No new consolidation is appreciated. Cardiac silhouette is stable. IMPRESSION: Essentially stable chest. Electronically signed by Hero Arroyo 11/01/2018 8:16 AM
[2018-11-01 08:26] LABS: AGAP 13; ALB/GLOB RATIO 0.9; ALBUMIN 2.9 g/dL (3.5-5.0); ALKALINE PHOSPHATASE 59 U/L (32-104); BUN 16 mg/dL (8-22); CALCIUM 8.8 mg/dL (8.8-10.2); CHLORIDE 97 mmol/L (98-107); COSMO 276; CREATININE 0.5 mg/dL (0.5-0.9); ESTIMATED GFR > 60; GLUCOSE 86 mg/dL (70-104); GOT 19 U/L (10-30); GPT 11 U/L (10-36); POTASSIUM 3.5 mmol/L (3.5-5.1); SODIUM 138 mmol/L (136-145); TCO2 28 mmol/L (25-35); TOTAL BILIRUBIN 0.41 mg/dL (0.20-1.00); TOTAL PROTEIN 6.1 g/dL (6.3-8.3)
[2018-11-01] MEDS: ELIQUIS PO SCH ×2 (09:30→20:32)
[2018-11-01] MEDS: DOXYCYCLINE PO SCH ×2 (09:30→20:32)
[2018-11-01] MEDS: ASPIRIN EC PO SCH (09:30)
[2018-11-01] MEDS: HYDROCHLOROTHIAZIDE PO SCH (09:31)
[2018-11-01] MEDS: BETAPACE PO SCH ×2 (09:32→20:32)
--- NOTE | 2018-11-01 15:27 | PROGRESS NOTE ---
DATE: 11/01/2018 SUBJECTIVE: The patient is resting in bed. Not in any obvious distress. Has family present in the room. OBJECTIVE: Vital Signs: Temperature 98 degrees, pulse 62, respirations 20, blood pressure is 146/55, oxygen saturation is 100%. HEENT: Atraumatic, normocephalic. Cardiovascular System: S1 and S2. Respiratory System: Has evidence of good air entry bilaterally. Abdomen: Soft, nontender. No masses felt. Extremities: No evidence of edema. Central Nervous System: No obvious focal deficit noted. Labs: hematocrit is 36.8, with a platelet count of 253,000. Sodium 138, potassium 3.5, chloride is 97, bicarb is 28, BUN is 16, creatinine 0.5. X-ray of the chest, pulmonary vascular congestion as well as mild atelectasis and/or infiltrate in the left base, stable. There is a small effusion on the left side. ASSESSMENT AND PLAN: 1. Acute respiratory failure. The patient is doing well post extubation. Maintain patient on supplemental oxygen. 2. Encephalopathy, improved. 3. Urinary tract infection secondary to Escherichia coli. Continue antibiotics. 4. Atrial fibrillation. Continue Betapace as well as Eliquis. Cardiology following. 5. Hypothyroidism. Continue levothyroxine. 6. Chronic obstructive pulmonary disease. Continue nebulized bronchodilators. 7. Deep vein thrombosis prophylaxis. The patient is on Eliquis. 8. Disposition. Plan is for the patient to be discharged to a half-way facility. Family's preference is [facility] in [place]. cc: Jonathan Taylor MD MTDD
[2018-11-01] MEDS: LIPITOR PO SCH (20:33)
[2018-11-02] MEDS: ATROVENT NEB INH SCH ×4 (03:27→23:00)
[2018-11-02] MEDS: XOPENEX NEB INH SCH ×4 (03:27→23:00)
[2018-11-02] MEDS: PROTONIX IV SCH (06:44)
[2018-11-02] MEDS: SYNTHROID PO SCH (06:45)
--- NOTE | 2018-11-02 07:03 | EKG Report ---
Test Performed on : 10/31/2018 3:20:10 PM Test Reason : PAF Blood Pressure : / mmHG Vent. Rate : 075 BPM Atrial Rate : 075 BPM P-R Int : 138 ms QRS Dur : 088 ms QT Int : 460 ms P-R-T Axes : 047 012 028 degrees QTc Int : 513 ms Normal sinus rhythm. Cannot rule out Anterior infarct , age undetermined Prolonged QT Abnormal ECG When compared with ECG of 30-OCT-2018 07:05, (Unconfirmed) Sinus rhythm. has replaced Atrial fibrillation. Vent. rate has decreased BY 47 BPM Non-specific change in ST segment in Inferior leads Nonspecific T wave abnormality, improved in Inferior leads Confirmed by Peter ASHLEY, Juan M Johnson ([id number]) on 11/02/2018 12:48:37 PM
[2018-11-02 07:34] LABS: HEMATOCRIT 38.1 % (37.0-47.0); HEMOGLOBIN 12.5 g/dL (12.0-16.0); MCH 31.6 PG (27-31); MCHC 32.8 g/dL (33-37); MCV 96.2 FL (81-99); MPV 10.4 FL (7.4-10.4); RBC 3.96 XMIL (4.2-5.4); RDW 12.4 % (11.5-14.5); WBC 7.32 X1000 (4.8-10.8)
--- NOTE | 2018-11-02 07:35 | Diag Imaging Result Doc PS360 ---
EXAM: CHEST-PORTABLE INDICATION: respiratory failure TECHNIQUE: One view COMPARISON: 11/01/2018 FINDINGS: Pulmonary venous congestion is essentially stable. Mild atelectasis and/or infiltrate at the left lung base has not changed. There is probably a small left effusion that is also stable. No new consolidation is identified. Cardiac silhouette is stable. IMPRESSION: Essentially stable chest. Electronically signed by Hero Arroyo 11/02/2018 7:32 AM
[2018-11-02 08:04] LABS: AGAP 9; ALB/GLOB RATIO 0.9; ALKALINE PHOSPHATASE 60 U/L (32-104); BUN 12 mg/dL (8-22); CHLORIDE 99 mmol/L (98-107); COSMO 277; CREATININE 0.5 mg/dL (0.5-0.9); ESTIMATED GFR > 60; GLUCOSE 92 mg/dL (70-104); GOT 19 U/L (10-30); GPT 11 U/L (10-36); POTASSIUM 3.4 mmol/L (3.5-5.1); SODIUM 139 mmol/L (136-145); TCO2 31 mmol/L (25-35); TOTAL BILIRUBIN 0.43 mg/dL (0.20-1.00); TOTAL PROTEIN 6.3 g/dL (6.3-8.3)
[2018-11-02] MEDS: ASPIRIN EC PO SCH (08:41)
[2018-11-02] MEDS: BETAPACE PO SCH ×2 (08:41→21:34)
[2018-11-02] MEDS: ELIQUIS PO SCH ×2 (08:41→21:35)
[2018-11-02] MEDS: HYDROCHLOROTHIAZIDE PO SCH (08:42)
[2018-11-02] MEDS: DOXYCYCLINE PO SCH ×2 (08:42→21:34)
--- NOTE | 2018-11-02 11:17 | PROGRESS NOTE ---
DATE: 11/02/2018 Ms. Liu is awake, alert, and attentive. She had appropriate conversation with me. She discussed her plans for rehab assignment after discharge from this hospital. I do not have anything to add from Neurology standpoint. She had a transient encephalopathy and seems to be recovered to baseline. Thanks for asking Neurology to see Ms. Liu. cc: Krista Stahl III, MD
[2018-11-02] MEDS ORDERED: KLOR-CON PO ONE (12:22)
--- NOTE | 2018-11-02 12:49 | PROGRESS NOTE ---
DATE: 11/02/2018 SUBJECTIVE: The patient resting in bed. The patient is awake, not in any obvious distress. OBJECTIVE: Vital signs: Temperature 97.3 degrees, pulse 67, respiratory rate 16, blood pressure 136/56, oxygen saturation is 100%. HEENT: Atraumatic, normocephalic. Cardiovascular: S1, S2. Respiratory system: Has evidence of good air entry bilaterally. Abdomen: Soft, nontender. No masses felt. Extremities: No evidence of edema. Central nervous system: No obvious focal deficits noted. LABORATORIES: WBC 7.33, hematocrit is 38.1 with a platelet count of 272,000. Sodium is 139, potassium 3.4, chloride 99, bicarb 31, BUN is 12, creatinine 0.5. ASSESSMENT AND PLAN: 1. Acute respiratory failure. The patient is status post extubation. She seems to be doing well. Continue oxygen supplementation. 2. Encephalopathy, improved. 3. Urinary tract infection secondary to enterococcus faecalis. Continue antibiotics. 4. Atrial fibrillation. Continue Betapace as well as Eliquis. Cardiology following. 5. Hypothyroidism. Continue levothyroxine. 6. Chronic obstructive pulmonary disease. Continue nebulized bronchodilators as needed. 7. Deep vein thrombosis prophylaxis. Patient is on Eliquis. DISPOSITION: Plan is for patient to go to a [facility] facility. The patient is ready for discharge and will be discharged once a bed opens up. cc: Jonathan Taylor MD
[2018-11-02] MEDS: NS 1,000 ML IV SCH (16:58)
[2018-11-02] MEDS: LIPITOR PO SCH (21:35)
[2018-11-03] MEDS: ATROVENT NEB INH SCH ×2 (03:25→07:44)
[2018-11-03] MEDS: XOPENEX NEB INH SCH ×2 (03:25→07:43)
[2018-11-03] MEDS: PROTONIX IV SCH (06:42)
[2018-11-03] MEDS: SYNTHROID PO SCH (06:42)
[2018-11-03] MEDS: SODIUM CHLORIDE 0.9% INJ SCH (06:42)
[2018-11-03 07:13] LABS: BASO# 0.03 X1000 (0.0-0.2); BASO% 0.4 % (0.0-0.8); EOS% 5.2 % (0.0-10.0); HEMOGLOBIN 11.8 g/dL (12.0-16.0); LYMPH# 1.74 X1000 (1.2-3.4); LYMPH% 22.8 % (20.5-51.1); MCH 30.9 PG (27-31); MCHC 32.8 g/dL (33-37); MCV 94.2 FL (81-99); MONO# 0.62 X1000 (0.11-0.59); MONO% 8.1 % (1.7-9.3); MPV 10.4 FL (7.4-10.4); NEUT# 4.83 X1000 (1.4-6.5); NEUT% 63.5 % (42.2-75.2); PLT 260 X1000 (130-400); RBC 3.82 XMIL (4.2-5.4); RDW 12.3 % (11.5-14.5); WBC 7.62 X1000 (4.8-10.8)
--- NOTE | 2018-11-03 07:18 | Diag Imaging Result Doc PS360 ---
EXAM: CHEST-PORTABLE HISTORY: respiratory failure TECHNIQUE: Portable chest single view COMPARISON: 11/02/2018 FINDINGS: There are bilateral infiltrates. These are less pronounced than on the prior study. Decreased pulmonary edema. There is trace pleural fluid. No cardiomegaly. IMPRESSION: Overall interval improvement. Electronically signed by Chetan Larose 11/03/2018 7:15 AM
[2018-11-03 07:34] LABS: AGAP 8; ALB/GLOB RATIO 0.9; ALKALINE PHOSPHATASE 59 U/L (32-104); BUN 11 mg/dL (8-22); CALCIUM 9.1 mg/dL (8.8-10.2); CHLORIDE 99 mmol/L (98-107); COSMO 281; CREATININE 0.5 mg/dL (0.5-0.9); ESTIMATED GFR > 60; GLUCOSE 107 mg/dL (70-104); GOT 18 U/L (10-30); GPT 12 U/L (10-36); POTASSIUM 3.5 mmol/L (3.5-5.1); SODIUM 141 mmol/L (136-145); TCO2 34 mmol/L (25-35); TOTAL PROTEIN 6.3 g/dL (6.3-8.3)
[2018-11-03 07:54] VITALS: BP 152/59
[2018-11-03] MEDS: HYDROCHLOROTHIAZIDE PO SCH (08:35)
[2018-11-03] MEDS: ASPIRIN EC PO SCH (08:39)
[2018-11-03] MEDS: BETAPACE PO SCH (08:40)
[2018-11-03] MEDS: DOXYCYCLINE PO SCH (08:42)
[2018-11-03] MEDS: ELIQUIS PO SCH (08:42)
--- NOTE | 2018-11-03 11:25 | DISCHARGE SUMMARY ---
ADMISSION DATE: 10/27/2018 DISCHARGE DATE: ADDENDUM REPORT: Ms. Liu was discharged on 10/31/2018. However, she was found to be remarkably weak so physical therapy was consulted. She has had about 2 sessions of physical therapy during the hospital stay and she seems to be needing moderate assist for ambulation and for transfer. She would therefore be going to [facility] for physical congregation. Please refer to the details of the discharge summary in the chart from 10/31/2018. DISCHARGE DIAGNOSES: 1. Altered mental status on presentation secondary to urinary tract infection, which is improved. 2. Enterococcal faecalis urinary tract infection, resolved. 3. Acute on chronic hypoxemic respiratory failure. Patient was intubated and, was successfully extubated during the hospital stay and transferred to the medical floor from the intensive care unit and Pulmonary Medicine and Respiratory Therapy were all involved. 4. Transient hypercarbia which has resolved. 5. Bilateral carotid nonobstructive stenosis noted. The patient is on statin and aspirin. 6. History of chronic obstructive pulmonary disease, on home oxygen. 7. History of cerebrovascular accident with no residual deficits. DISCHARGE MEDICATIONS: Medications have also been reviewed. No changes from the prior dictation. DISCHARGE INSTRUCTIONS: All the discharge instructions have been discussed with Ms. Liu and the daughter who was at the bedside at the time of the encounter. TIME SPENT: Time spent for discharge is 36 minutes. cc: Reggie Muñoz MD
[2018-11-04] MEDS ORDERED: PROTONIX PO SCH (07:00)
== END 2018-11-03 13:16 | DRG 689 ==
LOC: SUPCPDRO → ED 09:13 → ICU 12:50 → SUATTDRO 12:50 → ICU 13:19 → 3N 10-30 17:46
PROVIDERS: ATTEND Internal Medicine
CPT/HCPCS: 51701; 70450; 70544; 70553; 71010; 71045; 74000; 74018; 80048; 80053; 80061; 81001; 82550; 82553; 82805; 82948; 83605; 83721; 83735; 83880; 84100; 84134; 84443; 84484; 85025; 85027; 85610; 85730; 87040; 87077; 87088; 87186; 93005; 93010; 93306; 93880; 94003; 94640; 94761; 96365; 96375; 97161; 97167; 97530; 99285; A9270; A9579; C9113; J0131; J0696; J2060; J2250; J3370; J3475; J3480; J7030; J7040; P9612; S0164; XXXXX